=== PATIENT | female | born 1950 | race Caucasian/White ===

== ENCOUNTER 2016-04-14 15:13 | Emergency (ER) | payer MEDICARE, OTHER | END 2016-04-14 17:05 | disposition home or self-care (01) | LOC: D.ER 15:13 | DX: H53.9 Unspecified visual disturbance (principal); I10 Essential (primary) hypertension; F17.200 Nicotine dependence, unspecified, uncomplicated ==

== ENCOUNTER → 2016-08-08 13:59 | Outpatient (CLI) | payer MEDICARE, OTHER ==
[2016-08-08 14:23] LABS: BASOPHILS 0.9 % (0-2); EOSINOPHILS 3.3 % (0-7); HEMATOCRIT 42.2 % (36.0-48.0); IMMATURE GRANULOCYTES 0.2 % (0-5); LYMPHOCYTES 27.8 % (15-50); MCH 29.9 pg (26.0-34.0); MCHC 33.2 g/dL (31.0-37.0); MEAN PLATELET VOLUME 8.9 fL (7.4-10.4); MONOCYTES 4.9 % (2-11); NEUTROPHILS 62.9 % (40-80); PLATELET COUNT 290 10x3/uL (130-400); RBC 4.69 10x6/uL (4.00-5.40); RDW 13.5 % (11.5-14.5); WBC 8.1 10x3/uL (4.8-10.8)
[2016-08-08 15:00] LABS: ALBUMIN 3.6 g/dL (3.4-5.0); ANION GAP 10.7 mmol/L (8-16); BILIRUBIN - TOTAL 0.34 mg/dL (0.2-1.3); CALCIUM 8.9 mg/dL (8.5-10.1); CARBON DIOXIDE 29.4 mmol/L (21.0-32.0); LDL-HDL RATIO 2.6 ratio (1.5-3.5); POTASSIUM - SERUM 4.1 mmol/L (3.5-5.1); PROTEIN - SERUM 6.6 g/dL (6.4-8.2); THYROID STIMULATING HORMONE 0.59 uIU/mL (0.36-3.74)
== END | disposition home or self-care (01) ==
LOC: D.LAB 13:59
PROVIDERS: Family Medicine
DX: Z00.00 Encounter for general adult medical examination without abnormal findings (principal); E78.5 Hyperlipidemia, unspecified; I10 Essential (primary) hypertension; M19.90 Unspecified osteoarthritis, unspecified site; G43.909 Migraine, unspecified, not intractable, without status migrainosus; K58.9 Irritable bowel syndrome, unspecified

== ENCOUNTER → 2017-01-14 16:05 | Outpatient (CLI) | payer MEDICARE, OTHER | END | disposition home or self-care (01) | LOC: D.MAMMO 09-06 14:00 → D.US 09-06 15:00 → D.MAMMO 09-26 14:00 | DX: N60.02 Solitary cyst of left breast (principal) ==

== ENCOUNTER → 2017-02-13 13:02 | Outpatient (CLI) | payer MEDICARE, OTHER ==
[2017-02-13 13:59] LABS: CHOL - HDL RATIO 3.5 ratio (2.3-4.1); LDL-HDL RATIO 2.1 ratio (1.5-3.5)
== END | disposition home or self-care (01) ==
LOC: D.LAB 13:02
PROVIDERS: Family Medicine
DX: K21.9 Gastro-esophageal reflux disease without esophagitis (principal); I10 Essential (primary) hypertension; G43.909 Migraine, unspecified, not intractable, without status migrainosus; E78.5 Hyperlipidemia, unspecified

== ENCOUNTER 2017-07-17 09:08 | Emergency (ER) | payer MEDICARE, OTHER ==
[2017-07-17 09:51] LABS: BASOPHILS 0.3 % (0-2); EOSINOPHILS 3.4 % (0-7); HEMATOCRIT 41.5 % (36.0-48.0); HEMOGLOBIN 14.1 g/dL (12-16); IMMATURE GRANULOCYTES 0.5 % (0-5); LYMPHOCYTES 21.1 % (15-50); MCH 30.5 pg (26.0-34.0); MCV 89.6 fL (80.0-100.0); MEAN PLATELET VOLUME 8.8 fL (7.4-10.4); MONOCYTES 5.1 % (2-11); NEUTROPHILS 69.6 % (40-80); PLATELET COUNT 302 10x3/uL (130-400); RBC 4.63 10x6/uL (4.00-5.40); RDW 13.4 % (11.5-14.5); WBC 9.7 10x3/uL (4.8-10.8)
[2017-07-17 10:15] LABS: ALBUMIN 3.4 g/dL (3.4-5.0); ALKALINE PHOSPHATASE 76 U/L (46-116); ALT (SGPT) 18 U/L (10-68); BILIRUBIN - TOTAL 0.26 mg/dL (0.2-1.3); CALC OSMOLALITY 285 mosm/kg (275-300); CALCIUM 8.6 mg/dL (8.5-10.1); CARBON DIOXIDE 26.5 mmol/L (21.0-32.0); CHLORIDE - SERUM 103 mmol/L (98-107); CREATININE - SERUM 1.1 mg/dL (0.6-1.3); GLUCOSE 126 mg/dL (74-106); POTASSIUM - SERUM 3.3 mmol/L (3.5-5.1); PROTEIN - SERUM 6.6 g/dL (6.4-8.2); SODIUM 142 mmol/L (136-145); UREA NITROGEN 14 mg/dL (7-18); eGFR NON AFRICAN AMERICAN 52 mL/min (90-120)
[2017-07-17 10:17] LABS: CREATINE KINASE 49 UL (21-215)
[2017-07-17 10:28] LABS: TROPONIN-I < 0.017 ng/mL (0.000-0.060)
== END 2017-07-17 11:50 | disposition home or self-care (01) ==
LOC: D.ER 09:08
PROVIDERS: Emergency Medicine
DX: R42 Dizziness and giddiness (principal); E87.6 Hypokalemia; F17.200 Nicotine dependence, unspecified, uncomplicated; I10 Essential (primary) hypertension

== ENCOUNTER → 2018-06-18 16:06 | Outpatient (CLI) | payer MEDICARE, OTHER ==
[2018-06-18 17:14] LABS: BASOPHILS 0.7 % (0-2); EOSINOPHILS 5.4 % (0-7); HEMATOCRIT 40.2 % (36.0-48.0); HEMOGLOBIN 13.6 g/dL (12-16); IMMATURE GRANULOCYTES 0.4 % (0-5); MCH 30.1 pg (26.0-34.0); MCHC 33.8 g/dL (31.0-37.0); MCV 88.9 fL (80.0-100.0); MEAN PLATELET VOLUME 9.2 fL (7.4-10.4); MONOCYTES 5.8 % (2-11); NEUTROPHILS 54.7 % (40-80); PLATELET COUNT 322 10x3/uL (130-400); RBC 4.52 10x6/uL (4.00-5.40); RDW 13.4 % (11.5-14.5); WBC 8.5 10x3/uL (4.8-10.8)
[2018-06-18 18:06] LABS: ALBUMIN 3.6 g/dL (3.4-5.0); ANION GAP 9.1 mmol/L (8-16); BILIRUBIN - TOTAL 0.26 mg/dL (0.2-1.3); CALCIUM 8.7 mg/dL (8.5-10.1); CARBON DIOXIDE 30.8 mmol/L (21.0-32.0); CHOL - HDL RATIO 2.6 ratio (2.3-4.1); LDL-HDL RATIO 1.2 ratio (1.5-3.5); POTASSIUM - SERUM 3.9 mmol/L (3.5-5.1); PROTEIN - SERUM 6.8 g/dL (6.4-8.2); THYROID STIMULATING HORMONE 0.69 uIU/mL (0.36-3.74)
== END | disposition home or self-care (01) ==
LOC: D.LAB 16:06
PROVIDERS: ATTEND Family Medicine
DX: I10 Essential (primary) hypertension (principal)

== ENCOUNTER 2018-07-13 16:10 | Emergency (ER) | payer MEDICARE, OTHER ==
[~2018-07-13] VITALS: Ht 167.6 cm; Wt 72.7 kg
[2018-07-13 16:11] VITALS: Ht 167.6 cm; Wt 72.7 kg
[2018-07-13] MEDS ORDERED: ZYRTEC10 MG PO (16:13)
[2018-07-13] MEDS ORDERED: BENTYL10 MG PO (16:14)
[2018-07-13] MEDS ORDERED: OMEPRAZOLE40 MG PO (16:14)
[2018-07-13] MEDS ORDERED: MOBIC7.5 MG PO (16:14)
[2018-07-13] MEDS ORDERED: COZAAR50 MG PO (16:15)
[2018-07-13] MEDS ORDERED: HYDROCHLOROTH12.5 M1 PO (16:15)
[2018-07-13] MEDS ORDERED: LOPRESSOR25 MG PO (16:16)
[2018-07-13] MEDS ORDERED: ELAVIL25 MG PO (16:16)
[2018-07-13] MEDS ORDERED: LIPITOR40 MG PO (16:16)
[2018-07-13] MEDS ORDERED: K-TAB10 MEQ PO (16:16)
[2018-07-13] MEDS ORDERED: MULTI-DAY VITAM1 TAB PO (16:17)
[2018-07-13] MEDS ORDERED: HYDROCODON-ACE1 EAC2 PO (17:53)
[2018-07-13 18:32] VITALS: BP 168/88
[2018-07-14] MEDS ORDERED: LOSARTAN/HCTZ PO (15:52)
[2018-07-14] MEDS ORDERED: ESTRADIOL (15:55)
[2018-07-15 19:35] VITALS: Ht 167.6 cm; Wt 72.7 kg
== END 2018-07-13 18:36 | disposition home or self-care (01) ==
LOC: D.ER 16:10
DX: S82.492A Other fracture of shaft of left fibula, initial encounter for closed fracture (principal); W10.9XXA Fall (on) (from) unspecified stairs and steps, initial encounter; Y93.89 Activity, other specified; Y92.89 Other specified places as the place of occurrence of the external cause

== ENCOUNTER 2018-07-15 12:58 | Observation (INO) | payer MEDICARE, OTHER ==
[2018-07-15] VITALS (7 sets, daily range): BP systolic 114–163; BP diastolic 73–97; Ht 167.6 cm; Wt 72.7 kg
[~2018-07-15] VITALS: Ht 167.6 cm; Wt 72.7 kg
[~2018-07-15 12:58] MED LIST: BENTYL10 MG PO; COZAAR50 MG PO; ELAVIL25 MG PO; ESTRADIOL; HYDROCHLOROTH12.5 M1 PO; HYDROCODON-ACE1 EAC2 PO; K-TAB10 MEQ PO; LIPITOR40 MG PO; LOPRESSOR25 MG PO; LOSARTAN/HCTZ PO; MOBIC7.5 MG PO; MULTI-DAY VITAM1 TAB PO; OMEPRAZOLE40 MG PO; ZYRTEC10 MG PO
[2018-07-15 13:22] LABS: HEMATOCRIT 40.1 % (36.0-48.0); HEMOGLOBIN 13.7 g/dL (12-16); MCH 30.5 pg (26.0-34.0); MCHC 34.2 g/dL (31.0-37.0); MCV 89.3 fL (80.0-100.0); MEAN PLATELET VOLUME 8.9 fL (7.4-10.4); RBC 4.49 10x6/uL (4.00-5.40); RDW 13.6 % (11.5-14.5)
[2018-07-15 13:32] LABS: ANION GAP 12.9 mmol/L (8-16); CALCIUM 8.7 mg/dL (8.5-10.1); CARBON DIOXIDE 29.1 mmol/L (21.0-32.0); CREATININE - SERUM 1.2 mg/dL (0.6-1.3)
--- NOTE | 2018-07-15 17:52 | NUR ---
rec'd pt back from post op ankle surgery. rates pain 06/15. pt aa&o x4. v/s obtained. see flowsheet. pt transfered self to bed from stretcher. pt requesting a bedpan. bedpan provided.
--- NOTE | 2018-07-15 17:53 | NUR ---
POST OP VITALS SIGNS TO BE TAKEN Q 15 MINS X 1 HR INITATED. PT HAS BANDAGE TO LEFT ANKLE. ANKLE ELEVATED W/PILLOWS AND ICE CAP TO ANKLE. SKID PROOF SOCK PLACED ON RT FOOT AND SCD WRAP PLACED TO RT CALF. CONNECTED TO PUMP. PUMP IS ON AND FUNCTIONING. IV SITE TO RT WRIST/HAND AREA W/LR INFUSING AT SLOW RATE OFF PUMP. APPROX 250ML REMAINING. LINE PLACED ON PUMP TO INFUSE AT 50ML UNTIL ORDERS CAN BE REVIEWED. FAMILY AT BEDSIDE. BED LOW, SIDE RAILS UPX 2. CALL LIGHT AND PHONE AT BEDSIDE.
--- NOTE | 2018-07-15 18:21 | NUR ---
PT COMPLAINS OF LEFT ANKLE PAIN 5/10 ON NUMERIC PAIN SCALE. NORCO 5/325 GIVEN P.O AT THIS TIME FOR COMPLAINTS OF PAIN.
--- NOTE | 2018-07-15 20:30 | NUR ---
PATIENT REPORT RECEIVED FROM ASUNCION ANDREA TO ASSUME PATIENT CARE.
--- NOTE | 2018-07-15 20:33 | NUR ---
ANCEF 1 GRAM IVPB PER ALARIS PUMP AT THIS TIME. SEE EMAR
--- NOTE | 2018-07-15 20:45 | NUR ---
SHIFT ASSESSMENT COMPLETED, SEE FLOWSHEET
--- NOTE | 2018-07-15 21:03 | NUR ---
ANTIBIOTICS COMPLETED, NO REACTION NOTED.
--- NOTE | 2018-07-15 23:30 | NUR ---
PT ASSISTED ON TO BEDPAN AT THIS TIME. VOIDED WITHOUT DIFFICULTY, PERICARE PERFORMED. FRESH ICE WATER BROUGHT TO PATIENT PER REQUEST. NO FURTHER NEEDS IDENTIFIED. PT LEFT LEG REMAINS ELEVATED ON PILLOW WITH ICE PACK IN PLACE.
[2018-07-16 00:45] VITALS: BP 104/52
--- NOTE | 2018-07-16 00:45 | NUR ---
PATIENT SLEEPING WITH AUDIBLE SNORING, VITAL SIGNS TAKEN, ICE REMAINS IN PLACE AND LEFT LEG REMAINS ELEVATED ON PILLOW. PT DENIES NEEDS. WILL CONTINUE TO MONITOR.
--- NOTE | 2018-07-16 03:35 | NUR ---
PATIENTS LEFT LEG REPOSITIONED ON PILLOW, ICE PACK PLACED AND PAD REMOVED. PT STATED THAT SHE WAS SWEATING AND GOT THE PAD WET. NO FURTHER NEEDS IDENTIFIED. WILL CONTINUE TO MONITOR
--- NOTE | 2018-07-16 04:24 | NUR ---
ANTIBIOTICS STARTED VIA INFUSION PUMP PER MD ORDERS.
[2018-07-16 04:28] VITALS: BP 110/62
--- NOTE | 2018-07-16 04:36 | NUR ---
PT UP ON BEDPAN, VOIDED WITHOUT DIFFICULTY. PERICARE PERFORMED. NO FURTHER NEEDS IDENTIFIED.
--- NOTE | 2018-07-16 05:03 | NUR ---
pt medicated for pain at this time. will continue to monitor. génesis woods rn
[2018-07-16 08:01] VITALS: BP 123/60
--- NOTE | 2018-07-16 08:15 | NUR ---
ASSESSMENT COMPLETE. VERBAL RESPONSES APPRO TO QUESTIONS. SITTING UP EATING REG DIET. DR HAKWINS HERE TO SEE PT.
--- NOTE | 2018-07-16 09:32 | NUR ---
MEDS GIVEN- PT STATES WHAT MEDS SHE WANTS TO TAKE.
--- NOTE | 2018-07-16 10:45 | NUR ---
AT [facility]- STATES THAT PT CO HEADACHE. MED GIVEN BY Josselin GO RN
--- NOTE | 2018-07-16 10:47 | NUR ---
PT C/O HEADACHE PAIN RATED 8/10. PT REPORTS HX OF MIGRAINES AND REQUESTS AND RECEIVES NORCO 10/325MG X1 TAB AT THIS TIME. NO FURTHER NEEDS VOICED.
--- NOTE | 2018-07-16 11:32 | NUR ---
ENTERED ROOM- RESTING WITH WASH CLOTH OVER EYES. OPENS EYES WHEN ENTERED ROOM. STATES THAT HEADACHE IS A LITTLE BETTER BUT STATES THAT THINKS THAT IF SHE COULD SLEEP A LITTLE IT WOULD BE BETTER. REQUESTS THAT LUNCH TRAY AT DESK AND WILL CALL WHEN READY TO EAT. NOTIFIED DIETARY.
--- NOTE | 2018-07-16 12:30 | NUR ---
PT AWAKE AND STATES HEADACHE IS BETTER. STATES SHE IS READY FOR LUNCH.
--- NOTE | 2018-07-16 13:30 | NUR ---
DR HAWKINS HERE.
[2018-07-16] MEDS ORDERED: HYDROCODON-ACE1 EAC2 PO (14:01)
[2018-07-16] MEDS ORDERED: VISTARIL50 MG PO (14:02)
--- NOTE | 2018-07-16 14:08 | OP ---
PATIENT NAME: ARTURO BROOKE MEDICAL RECORD: [id number] :50 [facility] ADMISSION DATE:07/15/18 SURGEON: GIANLUCA HAWKINS DO DATE OF OPERATION: 07/15/2018 PROCEDURE PERFORMED: Left fibula intramedullary nailing or open reduction internal fixation. PREOPERATIVE DIAGNOSIS: Displaced left fibula fracture. POSTOPERATIVE DIAGNOSIS: Displaced left fibula fracture. INDICATIONS: Ms. Brooke is a 68-year-old female who fell and broke her ankle on Saturday. She had been putting weight on it contrary to instructions and her ankle was quite swollen, due to the fact it was decided do an intramedullary nail. She is aware of the risks and benefits of the procedure, essentially an open reduction internal fixation, damage to nerves and vessels, infection, bleeding, need for further surgery, and further fracture. She is aware of that and signed the consent. SURGEON: Gianluca Hawkins DO DESCRIPTION OF PROCEDURE: The patient received a block by anesthesia in the preoperative area and taken to the operative suite, laid in supine position, given general anesthetic and LMA was placed. Given 2 grams Ancef. The left lower extremity was prepped and draped in sterile fashion. At that time, a timeout was performed, everyone was in agreement with the correct side, site, patient and procedure. X-ray was then brought in and then we marked the fracture site as well as the distal fibula. A 2 cm incision was made along the distal fibula tip, a guide pin was then put in to the fibula into the canal and then this was moved slightly medially to where the original position was. Then, a 6-0 starting reamer was used. Then, the 2.6 flexible drill that was put up through the fibula past the fracture site was confirmed on AP and lateral and then the fibular nail was put up. A 2.5 fibular nail 145 mm in length was placed up in the fibula. This was backed out slightly as a displaced fracture slightly. The fracture was then opened at the fracture site and clamped with a crab claw holding the fracture reduced, the nail was then advanced. It did displace slightly fracture, but still holding good length. Due to that fact, the A to P screws were then put in through the guide. A small skin incision made on the anterior ankle and then two 3.5 screws were placed through it; one is a 26 and the other one was 24 mm. We went through the guide through the nail and then the syndesmosis. A ZipTight was put through the lateral side. A titanium 1 through the tibia as well and this was cinched down. We then removed the clamp off the fracture site and the nail held in good position. Very minimal loss reduction of the oblique fracture of the fibula and this was confirmed on AP, lateral, and mortise and the ankle was stressed as well and those medial space widening was noted. She did have a proximal fibula fracture. Once that was completed, the tourniquet had been inflated prior to starting the surgery with the left lower extremity exsanguinated with an Esmarch and had been up for approximately 46 minutes, the tourniquet was let down. Any bleeding was coagulated at that time. The incision sites were closed with 2-0 Vicryl and 4-0 Monocryl and ZipLine on the larger incisions. The patient was then placed in a posterior short leg splint, well-padded, secured with a 6 and 4-inch Raj wrap. She was awakened and taken to recovery in stable condition. OPERATIVE REPORT [id number] ARTURO BROOKE BLOOD LOSS: Approximately 50 mL. COMPLICATIONS: None. TRANSINT:[id number] Voice Confirmation ID: [id number] DOCUMENT ID: [id number] GIANLUCA HAWKINS DO at 1408 CC: [id number] DICTATION DATE: 07/15/18 1632 BIRTH CERTIFICATE CLERK: 07/15/18 2140 ADM IN [place] [id number] [place] [address]
[2018-07-16 14:25] VITALS: BP 131/70
--- NOTE | 2018-07-16 14:25 | NUR ---
PT SITTING ON SIDE OF BED- DRESSED IN HER CLOTHES. STATES SHE IS READY TO GO HOME THAT PEOPLE ARE WAITING ON HER AT HOME TO HELP HER GET INTO HOUSE. CASE MANAGEMENT HERE AND SETTING UP THE OBTAINING OF A WALKER.
--- NOTE | 2018-07-16 14:41 | MORECARE ---
CASE MANAGEMENT DISCHARGE SUMMARY PATIENT: ARTURO BROOKE UNIT: [id number] ADM DATE: 07/15/18 AGE: 68 : 50 SEX: F ROOM/BED: D.1219 AUTHOR: YULIANA MCCLAIN PHYSICIAN: REFERRING PHYSICIAN: AMANDA HAWKINS DO DATE OF SERVICE: 07/16/18 Discharge Plan Patient Name: ARTURO BROOKE Facility: [facility]:[place] : 1950 Planned Disposition: Home Anticipated Discharge Date: 07/16/18 Discharge Date: Expected LOS: 1 Initial Reviewer: [email or web address] Initial Review Date: 07/16/2018 Generated: 07/16/18 3:40 pm Comments DCP- Discharge Planning Updated by [email or web address]: Nadine Chris on 07/16/18 1:[address] Patient Name: ARTURO BROOKE Admission Status: Elective Accout number: [id number] Admission Date: 07-15-2018 : 1950 Admission Diagnosis: Attending: AMANDA HAWKINS Current LOS: 1 Anticipated DC Date: 07/16/18 Planned Disposition: Home Primary Insurance: MEDICARE A & B Discharge Planning Comments: Mortgage Banker: Nadine Chris External Providers External Provider: [facility] Next Contact Date: Service Request Date: Service Type: Resolution: Reviewer: Comments: Patient Name: ARTURO BROOKE Page [phone] at 1441 All edits/amendments must be made on the electronic document DICTATION DATE: 07/16/18 1440 LEAD CARPENTER: FARAZ 07/16/18 1440 RPT#: [id number] DC DATE: STATUS: ADM IN [place] [id number] [place] [address] END OF REPORT
--- NOTE | 2018-07-16 14:48 | MORECARE ---
CASE MANAGEMENT DISCHARGE SUMMARY PATIENT: ARTURO BROOKE UNIT: [id number] ADM DATE: 07/15/18 AGE: 68 : 50 SEX: F ROOM/BED: D.1219 AUTHOR: YULIANA MCCLAIN PHYSICIAN: REFERRING PHYSICIAN: AMANDA HAWKINS DO DATE OF SERVICE: 07/16/18 Discharge Plan Patient Name: ARTURO BROOKE Facility: [facility]:[place] : 1950 Planned Disposition: Home Anticipated Discharge Date: 07/16/18 Discharge Date: Expected LOS: 1 Initial Reviewer: [email or web address] Initial Review Date: 07/16/2018 Generated: 07/16/18 3:48 pm Comments DCP- Discharge Planning Updated by [email or web address]: Nadine Chris on 07/16/18 1:[address] Patient Name: ARTURO BROOKE Admission Status: Elective Accout number: [id number] Admission Date: 07-15-2018 : 1950 Admission Diagnosis: Attending: AMANDA HAWKINS Current LOS: 1 Anticipated DC Date: 07/16/18 Planned Disposition: Home Primary Insurance: MEDICARE A & B Discharge Planning Comments: After obtaining verbal consent, CM met with patient and spouse about discharge planning / needs. Patient states her plan is to discharge to home with her . Spouse will transport patient home upon discharge. States home environment is safe. States she will need a walker. Patient signed KATHLEEN for [facility] . Denies any other discharge planning needs at this time. CM will continue to follow and assist as needed with discharge planning / needs. CM called [facility]. Spoke with Albert. Faxed records as requested. At patient's request, arranged delivery of walker to patient's home Box Storage Worker: Nadine Chris Coverage Notice Reviewer: [id number] - Nadine Chris Notice Issued Date-Time: 07/16/2018 14:15 Notice Type: IM Discharge Notice Notice Delivered To: Patient Relationship to Patient: Self Associate Dean Name: Delivery Method: HAND - Hand Delivered Candida Days: Prior Verbal Notification: Recipient Understood Notice: Yes Recipient Signature: Yes Med Rec Note Co-signed by Attending: Coverage Notice Comment: Last DP export: 07/16/18 1:41 p Patient Name: ARTURO BROOKE Page [phone] at 1448 All edits/amendments must be made on the electronic document DICTATION DATE: 07/16/181447 [facility] DIRECTOR: FARAZ 07/16/181447 RPT#: [id number] DC DATE: STATUS: ADM IN [facility] [address] [place] [address] END OF REPORT
--- NOTE | 2018-07-16 14:50 | NUR ---
PRESCRIPTIONS X2 GIVEN ALONG WITH PT MED REC AND DRUG INFO SHEETS. DISCHARGE INST GIVEN. PT HEALTH SUMMARY GIVEN. PT DENIES QUESTIONS. CASE MANAGEMENT HAS SET UP FOR WALKER TO BE DELIVERED TO PT HOME. PT STATES SHE IS READY TO GO HOME.
--- NOTE | 2018-07-16 15:10 | NUR ---
TO AUTO VIA W/C WITHOUT INCIDENT. DRIVING.
--- NOTE | 2018-07-17 17:02 | MORECARE ---
CASE MANAGEMENT DISCHARGE SUMMARY PATIENT: ARTURO BROOKE UNIT: [id number] ADM DATE: 07/15/18 AGE: 68 : 50 SEX: F ROOM/BED: D.1219 AUTHOR: YULIANA MCCLAIN PHYSICIAN: REFERRING PHYSICIAN: AMANDA HAWKINS DO DATE OF SERVICE: 07/17/18 Discharge Plan Patient Name: ARTURO BROOKE Facility: [facility]:[place] : 1950 Planned Disposition: Home Anticipated Discharge Date: 07/16/18 Discharge Date: 07/16/2018 Expected LOS: 1 Initial Reviewer: [email or web address] Initial Review Date: 07/16/2018 Generated: 07/17/18 6:02 pm Comments DCP- Discharge Planning Updated by SAM: Nadine Chris on 07/16/18 1:[address] Patient Name: ARTURO BROOKE Admission Status: Elective Accout number: [id number] Admission Date: 07-15-2018 : 1950 Admission Diagnosis: Attending: AMANDA HAWKINS Current LOS: 1 Anticipated DC Date: 07/16/18 Planned Disposition: Home Primary Insurance: MEDICARE A & B Discharge Planning Comments: After obtaining verbal consent, CM met with patient and spouse about discharge planning / needs. Patient states her plan is to discharge to home with her . Spouse will transport patient home upon discharge. States home environment is safe. States she will need a walker. Patient signed KATHLEEN for [facility] . Denies any other discharge planning needs at this time. CM will continue to follow and assist as needed with discharge planning / needs. CM called [facility]. Spoke with Albert. Faxed records as requested. At patient's request, arranged delivery of walker to patient's home Financial Services Associate: Nadine Chris Coverage Notice Reviewer: [id number] - Nadine Chris Notice Issued Date-Time: 07/16/2018 14:15 Notice Type: IM Discharge Notice Notice Delivered To: Patient Relationship to Patient: Self Assistant Infant Teacher Name: Delivery Method: HAND - Hand Delivered Candida Days: Prior Verbal Notification: Recipient Understood Notice: Yes Recipient Signature: Yes Med Rec Note Co-signed by Attending: Coverage Notice Comment: Last DP export: 07/16/18 1:48 p Patient Name: ARTURO BROOKE Page [phone] at 1702 All edits/amendments must be made on the electronic document DICTATION DATE: 07/17/181701 CARRIER BLOWER: FARAZ 07/17/181701 RPT#: [id number] DC DATE:07/16/18 STATUS: DIS IN [facility] [address] [place] [address] END OF REPORT
== END 2018-07-16 15:10 | disposition home or self-care (01) ==
LOC: D.OPS 12:58 → D.PAN 15:00 → D.WS 16:36 → D.SDCHOLD 16:36 → OBSVTIME 16:37 → D.WS 17:21
PROVIDERS: Anesthesiology; ADMIT Orthopaedic Surgery; ATTEND Orthopaedic Surgery
DX: S82.402A Unspecified fracture of shaft of left fibula, initial encounter for closed fracture (principal); W19.XXXA Unspecified fall, initial encounter; I10 Essential (primary) hypertension